=== PATIENT | male | born 1990 | race Caucasian/White ===

== ENCOUNTER 2017-02-08 13:08 | Outpatient (CLI) | payer OTHER ==
[2017-02-08] MEDS ORDERED: ALBUTEROL NEB 2.5 MG/3 ML INH ONE (14:00)
== END 2017-02-08 13:09 | disposition home or self-care (01) ==
LOC: RT 13:08
PROVIDERS: ATTEND Nurse Practitioner Family
DX: R06.00 Dyspnea, unspecified (principal); F40.298 Other specified phobia
CPT/HCPCS: 94060; J7613

== ENCOUNTER 2017-11-09 09:08 | Emergency (ER) | payer OTHER ==
[2017-11-09] MEDS ORDERED: DEXAMETHASONE 10 MG/ML VIAL PO STA (10:38)
[2017-11-09] MEDS ORDERED: IPRATROPIUM/ALBUTEROL 3 ML NEB INH STA (10:38)
--- NOTE | 2017-11-09 12:06 | XRAY Report ---
Procedure Date: 11/09/2017 Accession Number: [id number] / [id number] Procedure: XR - Chest 2 View X-Ray CPT Code: 42998 FULL RESULT: EXAM: CHEST RADIOGRAPHY EXAM DATE: 11/09/2017 11:28 AM. CLINICAL HISTORY: Diminished breath sounds. COMPARISON: None. TECHNIQUE: 2 views. FINDINGS: Lungs/Pleura: No focal opacities evident. No pleural effusion. No pneumothorax. Normal volumes. Bronchial wall thickening noted. Mediastinum: Heart and mediastinal contours are unremarkable. Other: None. IMPRESSION: 1. Nonspecific bronchial wall thickening could represent bronchitis or reactive airways disease. 2. No consolidation, effusions or pneumothorax. RADIA
--- NOTE | 2017-11-09 12:07 | ED Physician Documentation ---
PD HPI URI - Stated complaint Stated Complaint: CONGESTION/COUGH - Chief complaint Chief Complaint: Resp - History obtained from History obtained from: Patient - History of Present Illness Timing - onset: How many weeks ago (1) Timing duration: Weeks (1) Timing details: Gradual onset, Still present Associated symptoms: Chills, Nasal congestion, Rhinorrhea, Productive cough, Dyspnea Improves by: Rest, MDI/nebulizer Worsened by: Activity Similar symptoms before: Diagnosis (asthma and bronchitis) Recently seen: Not recently seen - Additional information Additional information: 27-year-old male with a history of asthma has developed a cough and congestion he has shortness of breath and he is not getting adequate relief with the use of his inhaler. Review of Systems Constitutional: reports: Fever, Chills Eyes: denies: Decreased vision Ears: denies: Ear pain Nose: reports: Rhinorrhea / runny nose, Congestion Throat: reports: Sore throat Cardiac: denies: Chest pain / pressure, Palpitations Respiratory: reports: Dyspnea, Cough, Wheezing GI: denies: Abdominal Pain, Nausea, Vomiting : denies: Dysuria, Frequency PD PAST MEDICAL HISTORY - Past Medical History Past Medical History: Yes GI: GERD - Past Surgical History Past Surgical History: No - Present Medications Home Medications: Ambulatory Orders Medication Instructions Recorded Confirmed Omeprazole [Prilosec] 20 mg PO DAILY 12/30/14 10/02/15 Albuterol Sulfate [Proair Hfa 2 puffs IH QID #1 hfa.aer.ad 10/02/15 Inhaler] Albuterol Sulf [Ventolin Hfa 1 - 2 puffs INH Q4HR PRN #1 inhaler 11/09/17 Inhaler] Azithromycin [Zithromax] 250 mg PO DAILY #6 tablet 11/09/17 Fluticasone [Flonase] 11/09/17 Loratadine [Claritin] 10 mg 11/09/17 predniSONE [Deltasone] 10 mg PO DAILY #26 tablet 11/09/17 - Allergies Allergies/Adverse Reactions: Allergies Allergy/AdvReac Type Severity Reaction Status Date / Time No Known Drug Allergies Allergy Verified 10/02/15 11:25 - Social History Does the pt smoke?: No Smoking Status: Never smoker Does the pt drink ETOH?: Yes Does the pt have substance abuse?: No - Immunizations Immunizations are current?: Yes - POLST Patient has POLST: No PD ED PE NORMAL - Vitals Vital signs reviewed: Yes (normal ) - General General: Alert and oriented X 3, No acute distress, Well developed/nourished - HEENT HEENT: Atraumatic, PERRL, EOMI, Other (The right TM is inflamed the left is clear and the pharynx is with erythma to the right side. ) - Neck Neck: Supple, no meningeal sign, No bony TTP - Cardiac Cardiac: RRR, No murmur - Respiratory Respiratory: No respiratory distress, Other (diminished breath sounds bilaterally ) - Abdomen Abdomen: Soft, Non tender - Back Back: No CVA TTP, No spinal TTP - Derm Derm: Normal color, Warm and dry, No rash - Extremities Extremities: No deformity, No edema - Neuro Neuro: Alert and oriented X 3, No motor deficit, No sensory deficit, Normal speech Eye Opening: Spontaneous Motor: Obeys Commands Verbal: Oriented GCS Score: 15 - Psych Psych: Normal mood, Normal affect Results - Vitals Vitals: Vital Signs - 24 hr 11/09/17 11/09/17 09:25 11:00 Temperature 37.1 C Heart Rate 78 94 Respiratory 20 16 Rate Blood Pressure 121/67 O2 Saturation 99 Oxygen O2 Source Room air - Rads (name of study) 2 view chest Radiology: Prelim report reviewed (Impression: 1. Nonspecific bronchial wall thickening could represent bronchitis or reactive airway disease. 2 no consolidation, effusions or pneumothorax.), EMP read indepedently, See rad report PD MEDICAL DECISION MAKING - ED course Complexity details: considered differential, d/w patient ED course: 27-year-old male with history of asthma has cough and congestion has otitis on examination has diminished breath sounds chest x-ray is without evidence of infiltrate. He is administered Dexamethasone 10 mg here in the emergency department he is given a DuoNeb treatment and we will place him on some azithromycin and a course of prednisone. - Sepsis Event Vital Signs: Vital Signs - 24 hr 11/09/17 11/09/17 09:25 11:00 Temperature 37.1 C Heart Rate 78 94 Respiratory 20 16 Rate Blood Pressure 121/67 O2 Saturation 99 Oxygen O2 Source Room air Departure - Departure Disposition: 01 Home, Self Care Clinical Impression: Otitis media Qualifiers: Otitis media type: suppurative Chronicity: acute Laterality: right Recurrence: not specified as recurrent Spontaneous tympanic membrane rupture: without spontaneous rupture Qualified Code(s): H66.001 - Acute suppurative otitis media without spontaneous rupture of ear drum, right ear Asthma Qualifiers: Asthma severity: mild Asthma persistence: intermittent Condition: Stable Instructions: ED Bronchitis Asthmatic, ED Otitis Media Acute Adult Follow-Up: SRI COLBERT MD [Primary Care Provider] - Prescriptions: Albuterol Sulf [Ventolin Hfa Inhaler] 1 - 2 puffs INH Q4HR PRN #1 inhaler PRN Reason: Shortness Of Air/Wheezing Azithromycin [Zithromax] 250 mg PO DAILY #6 tablet predniSONE [Deltasone] 10 mg PO DAILY #26 tablet Forms: Activity restrictions
[2017-11-09 12:21] VITALS: BP 118/74
== END 2017-11-09 12:20 | disposition home or self-care (01) ==
LOC: ED 09:08
DX: H66.001 Acute suppurative otitis media without spontaneous rupture of ear drum, right ear (principal); J45.20 Mild intermittent asthma, uncomplicated; Z79.51 Long term (current) use of inhaled steroids
CPT/HCPCS: 71046; 94640; 99283; 99284